=== PATIENT | male | born 1980 | race Caucasian/White ===

== ENCOUNTER 2017-10-08 13:23 | Emergency (ER) | payer MEDICAID, SELFPAY ==
[2017-10-08 13:24] VITALS: BP 138/90; PULSE 91; RESP 18; TEMP 36.6; O2SAT 97; BMI 37.4
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
[2017-10-08 13:54] VITALS: RESP 18
[2017-10-08 14:24] VITALS: RESP 12
== END 2017-10-08 14:28 | disposition home or self-care (01) ==
PROVIDERS: Emergency Provider Emergency Medicine
DX: L72.3 Sebaceous cyst (principal); K21.9 Gastro-esophageal reflux disease without esophagitis; Z72.0 Tobacco use; Z79.899 Other long term (current) drug therapy
CPT/HCPCS: 10060; 99282

== ENCOUNTER 2021-03-25 22:10 | Emergency (ER) | payer MEDICAID, SELFPAY ==
[2021-03-25 22:11] VITALS: BP 115/84; PULSE 101; RESP 16; TEMP 36.3; O2SAT 98; BMI 29.2
[2021-03-25 22:25] LABS: Bedside Glucose 371 mg/dL (70-110)
--- NOTE | 2021-03-25 22:30 | ED.RN ---
pt requested to be seen for elevated blood sugar. triage was entered. patient was given a blood glucose test. after hearing the results patient decided to not be evaluated and left the department. salvador zuniga rn [id number]
== END 2021-03-25 23:59 | disposition home or self-care (01) ==
LOC: ED 09-22 06:14
DX: Z00.00 Encounter for general adult medical examination without abnormal findings (principal)
CPT/HCPCS: 82962

== ENCOUNTER 2022-12-04 07:42 | Emergency (ER) | payer OTHER, BC, SELFPAY ==
[2022-12-04 07:42] VITALS: BP 134/81; PULSE 122; RESP 18; TEMP 37.2; O2SAT 98; BMI 28.8
--- NOTE | 2022-12-04 07:50 | EX.ED.DYSGE1 ---
HPI History of Present Illness Chief Complaint: Abd Pain PFSH PFS Medical History (Updated 12/04/22 @ 13:[address] Antonino Trinidad, DO) Diabetes mellitus Home Medications dapagliflozin propanediol 5 mg tablet (Farxiga) 10 mg PO ACHS 12/04/22 [History Last Taken Unknown] metformin 500 mg tablet,extended release 24 hr 2,500 mg PO PRN PRN Hyperglycemia 12/04/22 [History Last Taken Unknown] oxycodone-acetaminophen 5 mg-325 mg tablet (Percocet) 1 tab PO Q6H PRN pain 3 days #12 tabs 12/04/22 [Rx Last Taken Unknown] Allergy/AdvReac Type Severity Reaction Status Date / Time promethazine HCl Allergy Other Verified 03/25/21 22:11 [From Phenergan] Anesthetics - Alyson Type- AdvReac Other Verified 12/04/22 07:47 Parabens [anesthesia - anesthetics] onion AdvReac Upset Verified 12/04/22 07:47 Stomach Surgical History (Updated 12/04/22 @ 07:56 by Karina Elliott) H/O knee surgery Social History Smoking Status: Current every day smoker tobacco type: cigarettes EXAM Physical Exam Const Vital Signs: 12/04/22 07:42 12/04/22 09:15 12/04/22 11:30 Temperature 98.9 F Temperature Source Temporal Pulse Rate 122 H 79 86 Respiratory Rate 18 Blood Pressure 134/81 H 118/71 112/71 Blood Pressure Mean 98 86 84 Pulse Ox 98 Oxygen Delivery Method Room Air 12/04/22 11:30 12/04/22 12:00 12/04/22 12:00 Temperature 99.3 F H 99.5 F H Temperature Source Oral Oral Pulse Rate 71 81 81 Respiratory Rate 14 16 16 Blood Pressure 112/71 104/71 104/71 Blood Pressure Mean 84 82 82 Pulse Ox 92 92 Oxygen Delivery Method Room Air Room Air 12/04/22 14:09 Temperature Temperature Source Pulse Rate 72 Respiratory Rate 16 Blood Pressure 132/68 H Blood Pressure Mean Pulse Ox 98 Oxygen Delivery Method MDM MDM MDM Narrative Medical decision making narrative: Trace HISTORY OF PRESENT ILLNESS: 42-year-old male here for abdominal pain for few days. Notes fever. States symptoms are better with a bowel movement and passing gas. He further states he has left lower quadrant abdominal pain that began 4 days ago. States it happened after he coughed forcefully. States pain is located left lower quadrant, is constant nonradiating, last bowel movement was yesterday. No melena hematochezia. Feels nauseous. No history abdominal surgeries. Does note he has fevers at home. [place] chest pain or shortness of breath. REVIEW OF SYSTEMS: Pertinent positives: Abdominal pain, nausea Pertinent negatives: Vomiting, syncope PHYSICAL EXAM: Nursing triage notes reviewed, Vital signs reviewed Constitutional: please see [facility] HENT: MMM Eyes: Pupils equal round and reactive to light, Extraocular muscles intact Neck: No stridor, no JVD, full neck ROM Lungs: Clear to auscultation, No wheezing or rales. No increased work of breathing, no conversational dyspnea, no accessory muscle use, no nasal flaring. No respiratory distress noted Heart: Regular rate and rhythm, No murmurs, No rubs and No gallops, 2+ distal pulses (radial, femoral, posterior tibial) in all extremities Abdomen: Soft, TTP in left lower quadrant, no obvious hernia, no overlying skin changes, there is no rigidity, rebound or guarding, no obvious peritoneal signs, no palpable pulsatile abdominal masses, no auscultated abdominal bruit. : No CVAT, no testicular tenderness, normal lie, positive cremasteric reflex bilaterally Extremities: No edema Neuro: No focal neurological deficits, cranial nerves II through XII intact, 5/5 strength in all extremities. Intact sensation to light touch in all extremities, 2+ reflexes bilateral patella tendons. Normal gait. No ataxia. Skin: No rash or lesions noted MEDICAL DECISION MAKING: Chief Complaint: Abdominal pain External records reviewed: No recent Marquez imaging of the abdomen or pelvis Factors affecting care: GERD, type 2 diabetes Social determinants of health: No drugs History obtained from others: The patient's family Consults: Radiologist ALL IMAGES (IF OBTAINED) HAVE BEEN PERSONALLY REVIEWED AND INTERPRETED BY MYSELF. [facility] Narrative: Patient was hemodynamically stable, afebrile, nontoxic-appearing. Exam with left lower quadrant TTP. No obvious hernia. Concern for for I considered the following differential diagnosis: Hernia (incarcerated, strangulated), diverticulitis obstruction, perforation, gallbladder etiology, pancreatitis, gastritis, esophagitis I obtained a broad lab and imaging work-up to further elucidate the etiology the patient's complaints. I treat the patient with IV morphine, Zofran and 1 L normal saline for symptomatic relief for rehydration. Labs remarkable for suggest dehydration as well as elevated lactate initially. CT scan showed NO evidence of strangulated hernia I did show a left inguinal hernia however there was no obvious bowel per radiology read. I did discuss with the radiologist. Radiologist was concerned more about a large lymph node. The concern is for possible lymphoma. This was communicated to the patient he expressed understanding. I did arrange close follow-up with our oncology clinic through our fast pass system. Patient will need to arrange follow-up appointment with them as soon as possible. He was given anti-inflammatories and narcotic pain medicine for home-going. The patient and/or family, caregivers express understanding. The patient and/or family, caregivers agrees with the plan. Total critical care time today provided was at least 0 minutes. This excludes separately billable procedures. Critical care time (if documented) is secondary to the patient having high probability of clinically significant/life threatening deterioration in the patient's condition which required my urgent intervention. Shared decision making: I will have a discussion with the patient and or visitors regarding risk/benefits of further testing or admission. They will be made aware of of the risk/benefits inherent in this decision they will be given the opportunity to voice understanding. Lab Data Attestation: I reviewed the patient's lab results. Lab results narrative: CBC without leukocytosis, severe anemia, no thrombocytopenia. Shows hemoconcentration with a hemoglobin 18 point CMP without evidence of acute kidney injury, significant electrolyte abnormality, anion gap, no evidence hepatobiliary pathology. Lipase is wnl indicating no pancreatic inflammation. LFTs show no evidence of hepatobiliary pathology. Lipase elevated consistent with endorgan hypoperfusion Urinalysis without evidence of infection Labs: Laboratory Results - last 24 hr 12/04/22 12/04/22 12/04/22 07:50 07:50 08:30 WBC 8.2 RBC 5.66 Hgb 18.2 H* Hct 49.7 MCV 87.8 MCH 32.2 H MCHC 36.6 H RDW Std Deviation 40.7 RDW Coeff of Joleen 12.6 Plt Count 235 MPV 9.9 Immature Gran % (Auto) 0.400 Neut % (Auto) 76.7 H Lymph % (Auto) 11.7 L [place] % (Auto) 10.3 H Eos % (Auto) 0.5 Baso % (Auto) 0.4 Absolute Neuts (auto) 6.3 Absolute Lymphs (auto) 0.96 Nucleated RBC % 0 [address] Review May foll Sodium 138 Potassium 3.7 Chloride 104 Carbon Dioxide 25.0 Anion Gap 9 BUN 16 Creatinine 1.31 H Estim Creat Clear Calc 73.46 Est GFR (MDRD) Af Amer 77 Est GFR (MDRD) Non-Af 64 BUN/Creatinine Ratio 12.2 Glucose 326 H Lactic Acid 2.3 H* Calcium 8.8 Total Bilirubin 0.30 AST 11 L ALT 25 Alkaline Phosphatase 77 Total Protein 7.2 Albumin 3.3 Globulin 3.9 Albumin/Globulin Ratio 0.8 L Lipase 32 Urine Color Urine Clarity Urine pH Ur Specific [place] Urine Protein Urine Glucose (UA) Urine Ketones Urine Occult Blood Urine Nitrite Urine Bilirubin Urine Urobilinogen Ur Leukocyte Esterase Urine RBC Urine WBC Ur Squamous Epith Cells Urine Bacteria Urine Mucus 12/04/22 12/04/22 10:31 11:45 WBC RBC Hgb Hct MCV MCH MCHC RDW Std Deviation RDW Coeff of Joleen Plt Count MPV Immature Gran % (Auto) Neut % (Auto) Lymph % (Auto) Clinton % (Auto) Eos % (Auto) Baso % (Auto) Absolute Neuts (auto) Absolute Lymphs (auto) Nucleated RBC % Diff Path Review Sodium Potassium Chloride Carbon Dioxide Anion Gap BUN Creatinine Estim Creat Clear Calc Est GFR (MDRD) Af Amer Est GFR (MDRD) Non-Af BUN/Creatinine Ratio Glucose Lactic Acid 1.9 Calcium Total Bilirubin AST ALT Alkaline Phosphatase Total Protein Albumin Globulin Albumin/Globulin Ratio Lipase Urine Color Yellow Urine Clarity Clear Urine pH 5.0 Ur Specific [place] 1.015 Urine Protein 15 H Urine Glucose (UA) 1000 H Urine Ketones 15 H Urine Occult Blood 10 H Urine Nitrite Negative Urine Bilirubin Negative Urine Urobilinogen Normal Ur Leukocyte Esterase Negative Urine RBC 0 SEEN Urine WBC 0 SEEN Ur Squamous Epith Cells 0 SEEN Urine Bacteria 0 SEEN Urine Mucus 0 SEEN Radiography Diagnostic Testing: Clinical Impression(s) from Imaging Studies Abdomen CT 12/04/22 08:05 IMPRESSION: Pathologic size subcarinal lymph node. This could be reactive or could be due to lymphoma or metastatic disease. 2 nonobstructing right renal calculi as above. Mild gallbladder distention. Left inguinal hernia. Electronically Signed: Zacarias Colunga MD, TAYLOR at 10:04 EDT , ADDENDUM: 12/04/22 1100 IMPRESSION: undefined Discharge Plan Triage Chief Complaint: Abd Pain ED Provider: Antonino Trinidad Dx/Rx/DC Orders Instructions: Lymphadenopathy Prescriptions: New oxycodone-acetaminophen [Percocet] 5-325 mg tablet 1 tab PO Q6H PRN (Reason: pain) 3 Days Qty: 12 0RF No Action metformin 500 mg tablet extended release 24 hr 2,500 mg PO PRN PRN (Reason: Hyperglycemia) Label Comments: TAKE 5 TABLETS BY MOUTH ONCE DAILY OR MAY DIVIDE THE DOSE 3 IN AM AND 2 IN PM} Farxiga 5 mg tablet 10 mg PO ACHS Label Comments: TAKE 1 TABLET BY MOUTH DAILY WITH BREAKFAST Stand Alone Forms: ED Work / School Excuse Other Ambulatory Orders: Fast Pass: Oncology Referral [facility] (Routine) Facility: [facility] - Location: [facility] Ordered By: Dr. Antonino Trinidad Primary Care Provider: Elliott Roman Referrals: Care Physician,No Primary [Non-Staff] - Activity Restrictions/Additional Instructions: Thank you for trusting us with your care today! Please take Tylenol (2 pills, 650 mg), ibuprofen (2 pills, 400 mg) every 6 hours as needed for pain and fever control. If this does not control your pain please take oral Percocet. Please return to the emergency department if your symptoms change or worsen. Please follow with your primary care physician for further outpatient evaluation and management. Disposition Disposition: Home, Self Care Discharge Date/Time: 12/04/22 14:10
--- NOTE | 2022-12-04 08:05 | CT_ITS ---
INDICATION: LLQ abdominal pain after lifting and coughing at same time. felt a and quot;pop and quot; EXAMINATION: CT ABDOMEN AND PELVIS WITHOUT CONTRAST - CT Abdomen And Pelvis W/O Contrast Injection TECHNIQUE: Helically acquired images were obtained of the abdomen and pelvis without oral or IV contrast. A radiation dose optimization technique was used for this scan. IV Contrast dosage and agent: None. Oral contrast: None. RADIATION DOSAGE (If Supplied By Facility): CTDIvol = ( 11.32 ) mGy, DLP = ( 571.04 ) mGycm COMPARISON: FINDINGS: LOWER CHEST: Lung bases are clear. No cardiomegaly or pericardial effusion. LIVER: Homogeneous. No focal mass. GALLBLADDER AND BILIARY TREE: No calcified gallstones. Mild gallbladder distention. No evidence of gallbladder wall edema. . No intra- or extrahepatic biliary ductal dilation. PANCREAS: No focal cystic or solid mass. SPLEEN: Normal size without focal cystic or solid mass. ADRENAL GLANDS: No nodules. KIDNEYS AND URETERS: 1 mm nonobstructing right lower pole calculus series 2 image 86. Series 2 image 90 demonstrates a 5 mm nonobstructing right lower pole calculus. Normal renal size and position. No hydronephrosis. PERITONEUM: No ascites or free air. No other fluid collection. BOWEL: No evidence of acute appendicitis. No stomach or bowel distension. No focal inflammatory change. LYMPH NODES: No enlarged mesenteric or retroperitoneal lymph nodes. There are bilateral inguinal lymph nodes visualized. However the largest lymph node is of pathologic size measuring 2.14 x 1.32 cm. VESSELS: Aorta is non-dilated. URINARY BLADDER: Unremarkable. REPRODUCTIVE ORGANS: No pelvic masses. ABDOMINAL WALL: Left inguinal hernia 2.7 cm transverse. BONES: No lytic or blastic abnormality. CT/Abdomen/Pel W ORAL Cont Only IMPRESSION: Pathologic size subcarinal lymph node. This could be reactive or could be due to lymphoma or metastatic disease. 2 nonobstructing right renal calculi as above. Mild gallbladder distention. Left inguinal hernia. Electronically Signed: Zacarias Colunga MD, TAYLOR at 10:04 EDT ,
[2022-12-04] MEDS: 0.9% Normal Saline 1,000 ML 1000 ML IV (08:26)
[2022-12-04] MEDS: Ondansetron 4 MG/2 ML Vial IV (08:26)
[2022-12-04] MEDS: Morphine 4 MG/ML Syringe IV ×3 (08:27→14:06)
[2022-12-04 08:39] LABS: Absolute Lymphocyte Count 0.96 X10^3/uL (0.83-4.51); Absolute Neutrophil Count 6.3 X10^3/uL (2.0-7.7); Basophil# 0.03 X10^3/uL; Basophil% 0.4 % (0-1); Eosinophil# 0.04 X10^3/uL; Eosinophils% 0.5 % (0-5); Hematocrit 49.7 % (40-54); Hemoglobin 18.2 g/dL (13.0-16.5); Lymphocyte # 0.96 X10^3/ul (0.83-4.51); Lymphocyte % 11.7 % (19-41); Mean Corp Hgb Conc 36.6 g/dL (32-36); Mean Corpuscular Hgb 32.2 pg (27.0-32.0); Mean Corpuscular Volume 87.8 fL (80-94); Mean Platelet Vol. 9.9 fl (6.2-12.0); Monocyte# 0.85 X10^3/uL; Monocyte% 10.3 % (0-10); NRBC Flagged by Analyzer 0 % (0-5); Neutrophil # 6.31 X10^3/uL (2.7-7.7); Neutrophil % 76.7 % (47-70); Platelet Count 235 K/mm3 (150-450); RBC Distribution Width CV 12.6 % (11.6-14.6); RBC Distribution Width SD 40.7 fl (35.1-43.9); Red Blood Count 5.66 M/mm3 (4.6-6.2); White Blood Count 8.2 K/mm3 (4.4-11.0)
[2022-12-04 09:03] LABS: ALB/GLOB Ratio 0.8 RATIO (0.9-2.4); AST(SGOT) 11 U/L (15-37); Alanine Aminotransfer ALT/SGPT 25 U/L (16-61); Albumin, Serum 3.3 g/dL (3.2-5.0); Alkaline Phosphatase 77 U/L (45-117); Anion Gap 9 (5-15); BUN 16 mg/dL (7-18); BUN/Creat Ratio 12.2 RATIO (10-20); Calcium,Total 8.8 mg/dL (8.5-10.1); Chloride 104 mmol/L (98-107); Creatinine, Serum 1.31 mg/dL (0.70-1.30); EST Glomerular Filtration Rate 64 mL/min (>60); Est Glom Filt Rate - Afr Amer 77 mL/min (>60); Estimated Creatinine Clearance 73.46 ml/min; Globulin 3.9 g/dL (2.2-4.2); Glucose 326 mg/dL (74-106); Lipase 32 U/L (13-75); Potassium 3.7 mmol/L (3.5-5.1); Protein, Total 7.2 g/dL (6.4-8.2); Sodium Level 138 mmol/L (136-145)
[2022-12-04 09:15] VITALS: BP 118/71; PULSE 79
[2022-12-04 09:24] LABS: Lactic Acid 2.3 mmol/L (0.4-1.9)
[2022-12-04 10:43] LABS: Bacteria 0 SEEN /hpf (None Seen); Mucous, Urine 0 SEEN /hpf (<or=2+); Red Blood Cells-Urine 0 SEEN /hpf (0-5); Squamous Epithelial Cells - UA 0 SEEN /hpf (0-5); White Blood Cells 0 SEEN /hpf (0-5)
[2022-12-04 10:45] LABS: Color, Urine Yellow (Yellow); Glucose, Dipstick 1000 mg/dl (Normal); Ketone-Dipstick 15 mg/dl (Negative); Leukocyte Esterase-Dipstick Negative /ul (Negative); Nitrite-Dipstick Negative (Negative); Occult Blood-Urine 10 /ul (Negative); Protein-Dipstick 15 mg/dl (Negative); Specific Gravity, Urine 1.015 (1.002-1.030); Urine Bilirubin Dipstick Negative (Negative); Urine Clarity Clear (Clear); Urine Urobilinogen Normal (Normal)
[2022-12-04 11:30] VITALS: BP 112/71; PULSE 71; PULSE 86; RESP 14; TEMP 37.4
[2022-12-04 12:00] VITALS: BP 104/71; PULSE 81; RESP 16; TEMP 37.5; O2SAT 92
[2022-12-04 12:34] LABS: Reflex Lactate? Y
[2022-12-04 12:44] LABS: Lactic Acid 1.9 mmol/L (0.4-1.9)
[2022-12-04 14:09] VITALS: BP 132/68; PULSE 72; RESP 16; O2SAT 98
[2022-12-06 13:02] LABS: Pathologist Review Reviewed
== END 2022-12-04 14:10 | disposition home or self-care (01) ==
PROVIDERS: Emergency Provider Emergency Medicine; PCP Internal Medicine; Visit Provider Emergency Medicine
DX: R59.9 Enlarged lymph nodes, unspecified (principal); E11.9 Type 2 diabetes mellitus without complications; K21.9 Gastro-esophageal reflux disease without esophagitis; R50.9 Fever, unspecified; F17.210 Nicotine dependence, cigarettes, uncomplicated; K40.90 Unilateral inguinal hernia, without obstruction or gangrene, not specified as recurrent
CPT/HCPCS: 74176; 80053; 81001; 83605; 83690; 85025; 96361; 96374; 96375; 96376; 99283; J7030; A4216; J2405